=== PATIENT | female | born 1935 | race Caucasian/White ===

== ENCOUNTER → 2018-02-20 | Outpatient (CLI) | payer MEDICARE | END | disposition home or self-care (01) | LOC: PCVCCLINIC 12:30 | PROVIDERS: ATTEND Internal Medicine Cardiovascular Disease | DX: Z01.818 Encounter for other preprocedural examination (principal); R94.31 Abnormal electrocardiogram [ECG] [EKG]; E78.5 Hyperlipidemia, unspecified; E78.00 Pure hypercholesterolemia, unspecified; I12.9 Hypertensive chronic kidney disease with stage 1 through stage 4 chronic kidney disease, or unspecified chronic kidney disease; N18.3 Chronic kidney disease, stage 3 (moderate); R60.0 Localized edema; K21.9 Gastro-esophageal reflux disease without esophagitis; M19.90 Unspecified osteoarthritis, unspecified site; Z79.899 Other long term (current) drug therapy; Z88.8 Allergy status to other drugs, medicaments and biological substances | CPT/HCPCS: 36415; 80061; 93005; G0463 ==

== ENCOUNTER → 2018-02-23 | Outpatient (CLI) | payer MEDICARE ==
[~2018-02-23] MED LIST: REGADENOSON 0.4 MG/5 ML DISP.SYRIN. IV ONE
--- NOTE | 2018-02-23 13:21 | PCVCIMAG ---
APPROVED REPORT Study performed: 02/23/2018 07:50:25 EXAM: Comprehensive 2D, Doppler, and color-flow Echocardiogram Patient Location: Echo lab Status: routine BSA: 1.80 HR: 72 bpmBP: 160/80 mmHg Rhythm: NSR Other Information Study Quality: Good Risk Factors: Cardiac Risk Factors: HTN, Hyperlipidemia Indications Abnormal ekg, Pre op clearance knee surgery, Hyperlipidemia 2D Dimensions IVSd: 11.60 (7-11mm)LVOT Diam: 19.65 (18-24mm) LVDd: 35.96 mm PWd: 9.86 (7-11mm)Ascending Ao: 38.05 (22-36mm) LVDs: 25.24 (25-40mm) Left Atrium: 31.80 (27-40mm) Aortic Root: 29.19 mm LV Single Plane 4CH: 60.44 % LV Single Plane 2CH: 58.33 % Biplane EF: 59.5 % Volumes Left Atrial Volume (Systole) LA ESV Index: 40.00 mL/m2 Aortic Valve AoV Peak Uziel.: 1.28 m/s AO Peak Gr.: 6.57 mmHgLVOT Max P.24 mmHg LVOT Max V: 1.03 m/s FROYLAN Vmax: 2.43 cm2 AI Vmax: 4.00 m/s AI Wilkes: 3.37 m/s2 AI PHT: 344.84 ms Mitral Valve E/A Ratio: 1.4 MV Decel. Time: 157.83 ms MV E Max Uziel.: 1.44 m/s MV A Uziel.: 1.05 m/s IVRT: 79.58 ms Pulmonary Valve PV Peak Gr.: 1.99 mmHg Pulmonary Vein P Vein S: 0.72 m/sP Vein A: 0.34 m/s P Vein D: 1.00 m/sP Vein A Dur.: 38.1 msec P Vein S/D Ratio: 0.72 Tricuspid Valve TR Peak Uziel.: 2.65 m/s TR Peak Gr.: 28.18 mmHg Left Ventricle The left ventricle is normal size. There is normal LV segmental wall motion. There is normal left ventricular wall thickness. Left ventricular systolic function is normal. The left ventricular ejection fraction is within the normal range. LVEF is 55-60%. Grade I - abnormal relaxation pattern. Right Ventricle The right ventricle is normal size. The right ventricular systolic function is normal. Atria Left atrium is mildly dilated. The right atrium size is normal. Aortic Valve The aortic valve is normal in structure. Mild aortic regurgitation. There is no aortic valvular stenosis. Mitral Valve Moderate mitral annular calcification. There is no mitral valve regurgitation noted. No evidence of mitral valve stenosis. Tricuspid Valve The tricuspid valve is normal in structure. There is no tricuspid valve regurgitation noted. Pulmonic Valve The pulmonary valve is normal in structure. Trace pulmonic regurgitation. Great Vessels The aortic root is normal in size. IVC is normal in size and collapses >50% with inspiration. Pericardium There is no pericardial effusion. <Conclusion> The left ventricle is normal size. LVEF is 55-60%. Grade I - abnormal relaxation pattern. The right ventricle is normal size. Left atrium is mildly dilated. Mild aortic regurgitation. Moderate mitral annular calcification. There is no mitral valve regurgitation noted. There is no tricuspid valve regurgitation noted. The aortic root is normal in size. There is no pericardial effusion.
--- NOTE | 2018-02-23 21:23 | PCVCIMAG ---
APPROVED REPORT Imaging Protocol: Rest Tc-99m/Stress Tc-99m 1 day Study performed: 02/23/2018 09:28:52 Indication: Abnormal EKG, Pre-Operative CV evaluation Patient Location: Out-Patient Stress Nurse: Sarai Reid RN RI Tech:Yun Sanabria [facility] Ht: 5 ft 4 in Wt: 160 lbs BSA: 1.78 m2 HR: 73 bpm BP: 180/80 mmHg BMI: 27.4 Rhythm: Sinus Rhythm, Incomplete RBBB Medical History Medical History: HTN, Hyperlipidemia, Diabetes Medications: Norvasc, Simvastatin, Benicar Allergies: Codeine Cardiac Risk Factors: Age Pretest Chest Pain Characteristics: No chest pain Exercise History: Physically active Resting Data Rest SPECT myocardial perfusion imaging was performed in supine position 45 minutes following the intravenous injection of 10.1 mCi of Tc-99m Sestamibi. Time of rest injection: 0830 Date: 02/23/2018 Administration Route: IV Administration Site: Right AC Pharmacologic Stress Pharmacologic stress test was performed by injecting Regadenoson 0.4 mg IV push over 10-15 seconds immediately followed by the intravenous injection of 31.1 mCi of Tc-99m Sestamibi. Time of stress injection: 1005 Date: 02/23/2018 Administration Route: IV Administration Site: Right AC Gated Stress SPECT was performed 45 minutes after stress injection. The images were gated to evaluate regional wall motion and calculate left ventricular ejection fraction. Stress Test Details Stress Test: Pharmacologic stress testing performed using 0.4 mg of regadenoson per 5 mL given IV over 10 seconds. Reason for pharmacologic stress test: physical limitation. HRMax Heart Rate (APMHR): 136 bpm Resting HR: 73 bpmTarget HR (85% APMHR): 115 bpm Max HR Achieved: 99 bpm % of APMHR: 72 Recovery HR: 115 bpm BP Resting BP: 180/80 mmHg Max BP: 140/71 mmHg Recovery BP: 158/92 mmHg ECG Resting ECG: Sinus Rhythm, Incomplete RBBB Stress ECG: Sinus Tachycardia Recovery ECG: Sinus Tachycardia Clinical Reason for Termination: Completed protocol Stress Symptoms: chest pressure Exercise duration: 0 min 55 sec Symptoms resolved with caffeine. Stress ECG Conclusion ECG: Non-ischemic Study Quality Study: Good Study Data Post stress, the left ventricular ejection was 69%.. SSS: 3 SRS: 6 SDS: 0 TID = 0.96. Perfusion No evidence of stress induced ischemia or prior myocardial infarction. Wall Motion Normal left ventricular size and function with no regional wall motion abnormalities. Nuclear Conclusion No evidence of stress induced ischemia or prior myocardial infarction. Normal left ventricular size and function with no regional wall motion abnormalities. Post stress, the left ventricular ejection was 69%. No prior study available for comparison. Interpreted by: Shawn Dominique MD Electronically Approved: 02/23/2018 21:21:11 <Conclusion> ECG: Non-ischemic
== END | disposition home or self-care (01) ==
LOC: PCVCIMAG 08:31
PROVIDERS: ATTEND Internal Medicine Cardiovascular Disease
DX: Z01.818 Encounter for other preprocedural examination (principal); I35.1 Nonrheumatic aortic (valve) insufficiency; R94.31 Abnormal electrocardiogram [ECG] [EKG]; I10 Essential (primary) hypertension; E78.5 Hyperlipidemia, unspecified; E11.9 Type 2 diabetes mellitus without complications
CPT/HCPCS: 78452; 93017; 93306; A9500; J2785